=== PATIENT | male | born 1975 | race Caucasian/White ===

== ENCOUNTER 2019-09-23 14:17 | Emergency (ER) | payer MEDICAID, SELFPAY ==
[2019-09-23 15:17] VITALS: BP 146/75; PULSE 88; RESP 16; TEMP 37.2; O2SAT 99
--- NOTE | 2019-09-23 16:09 | ED.URI ---
HPI - URI/Sore Throat General Stated Complaint: Cold/Flu Time Seen by Provider: 09/23/19 16:04 Source: patient and RN notes reviewed Mode of arrival: ambulatory Limitations: no limitations History of Present Illness HPI Narrative: Patient presents today with a 3-day history of productive cough, congestion, rhinorrhea, sore throat, subjective fever with sweats and chills.Denies history of asthma or COPD. He took cough medicine twice without relief.States he does smoke cigarettes, but has not smoked in the last couple months. MD elicited complaint: cough Related Data Home Medications Medication Instructions Recorded Confirmed carvedilol 25 mg PO BID 09/23/19 09/23/19 Allergies Allergy/AdvReac Type Severity Reaction Status Date / Time No Known Allergies Allergy Verified 09/23/19 15:47 Review of Systems Review of Systems: Narrative: CONSTITUTIONAL: Denies body aches. +Fever, sweats, chills EYES: Denies visual changes, redness, or discharge. ENT: Denies otalgia.+Rhinorrhea, congestion, sore throat CARDIOVASCULAR: Denies chest pain, palpitations, or edema. RESPIRATORY: Denies dyspnea.+Cough GASTROINTESTINAL: Denies abdominal pain, nausea, vomiting, or diarrhea. GENITOURINARY: Denies dysuria or hematuria. SKIN: Denies rash, itching, or wounds. MUSCULOSKELETAL: Denies back pain, joint pain, or myalgia. NEUROLOGIC: Denies headache, numbness, tingling, or weakness. PSYCH: Denies depression or anxiety. PMFSH Comments At time of signature, I have reviewed and agree with nursing past medical, surgical, social and family history unless otherwise noted. Please see nursing chart for further information. There is no relevant family history pertinent to the presenting complaint Exam Narrative: Exam Narrative: GENERAL: Mildly ill-appearing, well-nourished, and in no acute distress. HEAD: Normocephalic, atraumatic. EYES: EOMI. No redness or drainage. Conjunctivae normal. ENT: Mucous membranes pink and moist. Nares Congested. No rhinorrhea. TMs normal bilaterally. Throat normal. Uvula midline. NECK: Normal AROM. Supple. No lymphadenopathy. CHEST: No respiratory distress. Clear to auscultation. HEART: Regular rate and rhythm. No murmur appreciated. Normal peripheral pulses. ABDOMEN: Soft, nontender, nondistended, normal active bowel sounds. MUSCULOSKELETAL: No bony tenderness. EXTREMITIES: Normal range of motion. No edema. SKIN: Warm, dry, no rash. NEURO: No focal deficits. Alert and oriented x3. Gait steady. PSYCH: Normal affect. No signs of depression or anxiety. Course Vital Signs Vital signs: Vital Signs Temperature 98.9 F 09/23/19 15:17 Pulse Rate 88 09/23/19 15:17 Respiratory Rate 16 09/23/19 15:17 Blood Pressure 146/75 H 09/23/19 15:17 Pulse Oximetry 99 09/23/19 15:17 Temperature 98.9 F 09/23/19 15:17 Pulse Rate 88 09/23/19 15:17 Respiratory Rate 16 09/23/19 15:17 Blood Pressure 146/75 H 09/23/19 15:17 Pulse Oximetry 99 09/23/19 15:17 Reviewed. Pt has been instructed to follow up with his PCP regarding his elevated blood pressure today. MDM - URI/Sore Throat Differential Diagnosis Differential diagnosis: Likely upper respiratory infection, otitis media, viral infection and influenza Lab Data Attestation: I reviewed the patient's lab results. Labs: Influenza A Screen Negative Reference Range: Negative Influenza B Screen Negative Reference Range: Negative Critical Care Time Critical Care Time Critical Care Time: No Discharge Plan Discharge Clinical Impression: Acute upper respiratory infection Patient Disposition: Home, Self-Care Condition: Stable Instructions: Upper Respiratory Infection (DC) Additional Instructions: Your influenza swab was negative today.Your symptoms are likely due to a viral illness, which is not treated with antibiotics. Virus symptoms can last for up to 10-14 days. Take Ibuprofen
== END 2019-09-23 15:45 | disposition home or self-care (01) ==
PROVIDERS: Emergency Provider Nurse Practitioner
DX: J06.9 Acute upper respiratory infection, unspecified (principal)
CPT/HCPCS: 87804; 99203; G0463